=== PATIENT | male | born 1955 | race Caucasian/White ===

== ENCOUNTER 2017-02-09 14:44 | Emergency (ER) | payer OTHER ==
[~2017-02-09] VITALS: Ht 160 cm; Wt 102.0 kg
[2017-02-09 14:44] VITALS: Ht 160 cm; Wt 102.0 kg
[2017-02-09] MEDS ORDERED: SOD CHLORIDE 0.9% 1,000 ML IV STA (14:54)
[2017-02-09] MEDS ORDERED: ACYCLOVIR 500 MG in DEXTROSE 5% 100 ML IVPB ONE (15:00)
[2017-02-09] MEDS ORDERED: predniSONE 20 MG TAB PO ONE (15:00)
[2017-02-09 15:15] LABS: ADD SCAN DIFF NO
[2017-02-09 15:18] LABS: BASOPHILS % 0.4 % (0.0-2.0); EOSINOPHILS # 0.3 10^3/ul (0.0-0.5); EOSINOPHILS % 3.2 % (0.0-7.0); HEMATOCRIT 41.9 % (42.0-52.0); HEMOGLOBIN 14.6 g/dl (14.0-18.0); LYMPHOCYTES # 2.4 10^3/ul (0.8-2.9); LYMPHOCYTES % 30.3 % (15.0-51.0); MEAN CORPUSCULAR HEMOGLOBIN 30.8 pg (29.0-33.0); MEAN CORPUSCULAR HGB CONC 34.8 g/dl (32.0-37.0); MEAN CORPUSCULAR VOLUME 88.4 fl (82.0-101.0); MEAN PLATELET VOLUME 9.7 fl (7.4-10.4); MONOCYTE # 0.6 10^3/ul (0.3-0.9); NEUTROPHIL # 4.7 10^3/ul (1.6-7.5); NEUTROPHILS % 58.9 % (39.0-77.0); PLATELET COUNT 346 10^3/UL (140-415); RED BLOOD COUNT 4.74 10^6/ul (4.70-6.10); RED CELL DISTRIBUTION WIDTH 12.1 % (11.5-14.5)
[2017-02-09 15:38] LABS: ALANINE AMINOTRANSFERASE 40 IU/L (13-69); ALBUMIN 4.7 g/dl (3.3-4.9); ALBUMIN/GLOBULIN RATIO 1.51; ALKALINE PHOSPHATASE 112 IU/L (42-121); ANION GAP 14 (8-16); ASPARTATE AMINO TRANSFERASE 21 IU/L (15-46); BILIRUBIN,INDIRECT 0.3 mg/dl (0-1.1); BILIRUBIN,TOTAL 0.3 mg/dl (0.2-1.3); BLOOD UREA NITROGEN 19 mg/dl (7-20); CALCIUM 9.6 mg/dl (8.4-10.2); CARBON DIOXIDE 24 mmol/L (21-31); CHLORIDE 107 mmol/L (97-110); CREATININE 0.76 mg/dl (0.61-1.24); GLUCOSE 114 mg/dl (70-220); POTASSIUM 4.3 mmol/L (3.5-5.1); SODIUM 141 mmol/L (135-144); TOTAL PROTEIN 7.8 g/dl (6.1-8.1)
[2017-02-09 15:51] LABS: TROPONIN-I < 0.012 ng/ml (0.00-0.12)
--- NOTE | 2017-02-09 16:18 | RADRPT ---
PROCEDURE: CT Brain without contrast. CLINICAL INDICATION: Velasquez's palsy. TECHNIQUE: A CT of the brain was performed on a multidetector CT scanner utilizing axial sections from the skull base through the vertex without contrast. Images were reviewed on a high-resolution [email or web address] workstation. Exam CTDI = 44.58 mGy and the DLP = 720.23 mGy-cm. One or more of the following dose reduction techniques were used: Automated exposure control Adjustment of the mA and/or kV according to patient size. Use of iterative reconstruction technique. COMPARISON: None available FINDINGS: Mild diffuse cerebral and cerebellar atrophy is present. There is proportionate dilatation of the v entricular system and sulci in a symmetric fashion. There is prominence of the extraaxial spaces sec ondary to atrophy. There is no evidence of intracranial hemorrhage, mass effect or midline shift. N o abnormal intra-axial or extra-axial fluid collections are seen. The density of the brain is eliane l and the espinoza/white matter differentiation is well preserved. The osseous structures are unremar kable. Paranasal sinuses are clear. IMPRESSION: 1. No intracranial hemorrhage, mass effect or midline shift. RPTAT: BB .Adela Siddiqui MD, MD Date Time Electronically viewed and signed by .Adela Siddiqui MD, on 02/09/2017 16:18 .O/
[2017-02-09 16:38] VITALS: BP 129/60; PULSE 90; RESP 16
[2017-02-09] MEDS ORDERED: DEXT1DRO OP (16:51)
[2017-02-09] MEDS ORDERED: ACYC400T2 PO (16:51)
[2017-02-09] MEDS ORDERED: MED4DP PO (16:51)
--- NOTE | 2017-02-09 18:09 | ERD ---
ER Documentation Chief Complaint Date/Time DATE: 02/09/17 TIME: 18:03 Chief Complaint HAVE TROUBLE EATING AND TALKING; FACIAL NUMBNESS STARTED ON THURSDAY HPI 61-year-old man with 3 days of right sided facial paresis and clear epiphora from the right eye. He denies headache, denies previous episodes, no weakness in his arms or legs, no complaints of chest pain or palpitations, no shortness of breath, no blood per rectum or melena. Patient denies abdominal pain. Patient denies recent travel or recent antibiotic use. ROS All systems reviewed and are negative except as per history of present illness. Medications Home Meds Active Scripts Acyclovir* (Acyclovir*) 400 Mg Tablet, 400 MG PO TID, #40 TAB Prov:SONJA ULX MD 02/09/17 Dextran 70/Hypromellose/Pf (Tears Naturale Free Drops) 1 Each Droperette, 2 EACH OP TID for ITCHING, #1 BOTTLE Prov:SONJA LUX MD 02/09/17 Methylprednisolone* (Medrol* DOSE PACK) 4 Mg/Dose-Pack Tab.ds.pk, 4 MG PO . DIRECTED for 14 Days, PACKET Prov:SONJA LUX MD 02/09/17 Allergies Allergies: Coded Allergies: Penicillins (Unverified Allergy, Unknown, RASH, 02/09/17) PMhx/Soc Obesity, hypertension, diabetes mellitus Medical and Surgical Hx: pt denies Surgical Hx History of Surgery: No Anesthesia Reaction: No Hx Neurological Disorder: No Hx Respiratory Disorders: No Hx Cardiac Disorders: No Hx Psychiatric Problems: No Hx Alcohol Use: Yes (socially) Hx Substance Use: No Smoking Status: Never smoker FmHx Family History: diabetes Physical Exam Vitals Vital Signs Date Time Temp Pulse Resp B/P Pulse Ox O2 Delivery O2 Flow Rate FiO2 02/09/17 16:38 90 16 129/60 100 Room Air 02/09/17 14:44 97.2 70 19 196/83 95 Physical Exam GENERAL: Well-developed, well-nourished, well-hydrated, in no apparent distress , looks nontoxic in appearance, afebrile HEENT: Moist mucous membranes, injected conjunctiva on the right with clear picture, no purulent discharge from the eyes, no cervical spine tenderness or deformity, no Kernig sign, no goiter, no pharyngeal erythema, left and right external auditory canals are normal, tympanic membranes are normal without bulging or erythema NEURO: Alert and oriented 3, patient has paresis to the right side of the face affecting the entire face including the forehead, no pronator drift, pupils equal round reactive to light, no deficits in the upper lower extremities CARDIAC: Regular rate and rhythm, no murmurs rubs or gallops LUNGS: Clear bilaterally no wheezing crackles or stridor ABDOMEN: Soft nontender, no guarding, no rigidity, no rebound, no psoas sign no obturator sign. Normoactive bowel sounds SKIN: Warm and dry to touch, no abrasions, contusions, or hematomas, no lacerations, no ecchymosis, no target lesions, and without ulcers EXTREMITIES: No clubbing cyanosis or edema, calves are bilaterally symmetrical, no Homans sign, no popliteal cord sign. Distal pulses equal and bilateral PSYCH: Normal affect without agitation or irritability Result Diagram: 02/09/17 1509 02/09/17 1509 Results 24 hrs Laboratory Tests Test 02/09/17 15:09 White Blood Count 8.010^3/ul Red Blood Count 4.7410^6/ul Hemoglobin 14.6g/dl Hematocrit 41.9% Mean Corpuscular Volume 88.4fl Mean Corpuscular Hemoglobin 30.8pg Mean Corpuscular Hemoglobin Concent 34.8g/dl Red Cell Distribution Width 12.1% Platelet Count 84124^3/UL Mean Platelet Volume 9.7fl Neutrophils % 58.9% Lymphocytes % 30.3% Monocytes % 7.0% Eosinophils % 3.2% Basophils % 0.4% Nucleated Red Blood Cells % 0.0/100WBC Neutrophils # 4.710^3/ul Lymphocytes # 2.410^3/ul Monocytes # 0.610^3/ul Eosinophils # 0.310^3/ul Basophils # 0.010^3/ul Nucleated Red Blood Cells # 0.010^3/ul Sodium Level 141mmol/L Potassium Level 4.3mmol/L Chloride Level 107mmol/L Carbon Dioxide Level 24mmol/L Anion Gap 14 Blood Urea Nitrogen 19mg/dl Creatinine 0.76mg/dl Glucose Level 114mg/dl Calcium Level 9.6mg/dl Total Bilirubin 0.3mg/dl Direct Bilirubin 0.00mg/dl Indirect Bilirubin 0.3mg/dl Aspartate Amino Transf (AST/SGOT) 21IU/L Alanine Aminotransferase (ALT/SGPT) 40IU/L Alkaline Phosphatase 112IU/L Troponin I < 0.012ng/ml Total Protein 7.8g/dl Albumin 4.7g/dl Globulin 3.10g/dl Albumin/Globulin Ratio 1.51 Lipase 78U/L Current Medications Medications (Trade) Dose Ordered Sig/Sravani Route PRN Reason Start Time Stop Time Status Last Admin Dose Admin Sodium Chloride 1,000 ml @ 1,000 mls/hr Q1H STAT IV 02/09/17 14:54 02/09/17 15:53 DC 02/09/17 15:25 Acyclovir/Dextrose (Zovirax/D5W) 100 ml @ 100 mls/hr ONCE ONCE IVPB 02/09/17 15:00 02/09/17 15:59 DC 02/09/17 15:30 Prednisone (Prednisone) 60 mg ONCE ONCE PO 02/09/17 15:00 02/09/17 15:01 DC 02/09/17 15:24 Procedures/MDM IV line was established patient was placed on cardiac tech rhythm strip revealed a sinus rhythm at about 90 bpm with upright P and T waves. Patient was afebrile. I administered 1 L normal saline intravenously, prednisone 60 mg p.o., and acyclovir [address] scan of the brain was performed that was negative for acute bleed mass or shift. EKG performed, read by me revealed a normal sinus rhythm at 92 bpm, normal axis , narrow QRS complex with multiple PVCs, no concerning ST elevations or depressions noted. CBC and electrolytes are normal, liver function tests were normal, troponin was negative. Patient's hypertension resolved. Differential diagnoses considered, included but not limited to acute coronary syndrome, pulmonary embolism, aortic dissection, abdominal aortic aneurysm, sepsis, stroke, meningitis, encephalitis, pneumonia, appendicitis, cholecystitis , bowel obstruction, pyelonephritis, nephrolithiasis, cystitis, as well as metabolic, hematologic, and electrolyte abnormalities. As well as abscess, cellulitis, fractures, and dislocations. Patient feels much better at this time, and vital signs are normal, symptoms have improved. I did give strict instructions to return to the ED if symptoms continue or worsen, patient will otherwise follow-up with primary care physician. Patient understood instructions and agreed to plan. Disclaimer: Inadvertent spelling or grammatical errors are likely due to EHR/ dictation software use and do not reflect on the overall quality of patient care. Departure Diagnosis: Primary Impression: Velasquez's palsy Additional Impression: Hypertension Hypertension type: essential hypertension Qualified Code: I10 - Essential hypertension Condition: Good Patient Instructions: Velasquez's Palsy SONJA LUX MD Feb 09, 2017 18:09
== END 2017-02-09 17:08 | disposition home or self-care (01) ==
LOC: E/R 14:44
DX: G51.0 Bell's palsy (principal); I10 Essential (primary) hypertension; E11.9 Type 2 diabetes mellitus without complications; E66.9 Obesity, unspecified; Z68.39 Body mass index [BMI] 39.0-39.9, adult
CPT/HCPCS: 36415; 70450; 80053; 83690; 84484; 85025; 93005; 96374; J0133; J7030; J7512; Z7502; Z7610

== ENCOUNTER 2017-12-19 11:27 | Emergency (ER) | END 2017-12-19 13:49 | disposition home or self-care (01) ==